=== PATIENT | female | born 1995 | race African-American/Black ===

== ENCOUNTER → 2025-02-02 | Emergency (ER) | payer OTHER ==
[~2025-02-02] VITALS: Ht 175.3 cm; Wt 77.1 kg
[~2025-02-02] MED LIST: ONDANSETRON HCL/PF 4 MG/2 ML VIAL ONE; PANTOPRAZOLE 40 MG VIAL ONE
[2025-02-02 23:47] LABS: BASOPHILS % (AUTO) 0.7 % (0.0-2.0); HEMATOCRIT 36 % (33-45); HEMOGLOBIN 12.1 g/dL (11.5-14.8); LYMPHOCYTES # (AUTO) 1.9 K/uL (0.8-4.8); MEAN CORPUSCULAR HEMOGLOBIN 32 PG (26.0-33.0); MEAN CORPUSCULAR HGB CONC 33 g/dl (31.0-36.0); MEAN CORPUSCULAR VOLUME 97 fL (82-100); MONOCYTES # (AUTO) 0.4 K/uL (0.1-1.30); MONOCYTES % (AUTO) 9.2 % (2.0-12.0); NEUTROPHILS % (AUTO) 46.1 % (43.0-81.0); PLATELET COUNT (AUTO) 233 K/uL (150-450); RED BLOOD CELL COUNT(AUTO) 3.77 MIL/uL (4.0-5.2); RED CELL DISTRIBUTION WIDTH 16.1 % (11.5-15.0); WHITE BLOOD COUNT (AUTO) 4.3 K/uL (4.3-11.0)
[2025-02-02] MEDS: IV NS 0.9% 1,000 ML BAG IV ONE (23:51)
[2025-02-02] MEDS: PANTOPRAZOLE 80 MG in IV NS 0.9% 100 ML IV ONE (23:53)
[2025-02-02] MEDS: ONDANSETRON HCL/PF 4 MG/2 ML VIAL IVP ONE (23:54)
[2025-02-03] LABS: CREATININE 0.8 mg/dL (0.6-1.3); POTASSIUM 3.6 mmol/L (3.5-5.1)
[2025-02-03 00:01] LABS: INR 1.06 (0.91-1.10); PARTIAL THROMBOPLASTIN TIME 27.3 SEC (24.3-34.3); PROTHROMBIN TIME 11.2 SECS (9.2-11.1)
[2025-02-03 00:06] LABS: ALBUMIN 3.8 g/dL (3.4-5.0); BILIRUBIN,DIRECT 0.3 mg/dL (0.0-0.2); BILIRUBIN,TOTAL 0.9 mg/dL (0.2-1.0); TOTAL PROTEIN, SERUM 7.7 g/dL (6.4-8.2)
[2025-02-03 01:17] VITALS: BP 102/69; TEMP 98.9; O2SAT 96
== END ==
LOC: ER 23:07
DX: F10.129 Alcohol abuse with intoxication, unspecified (principal); K92.0 Hematemesis; K76.0 Fatty (change of) liver, not elsewhere classified; Y90.8 Blood alcohol level of 240 mg/100 ml or more
CPT/HCPCS: 99285; 96374; 96361; 96375; 93005; 71045; 74176; 85025; 80048; 83690; 80076; 85730; 86850; 80320; J2405; J7030 ×3; J2470 ×2; A4223; 36415; G0480

== ENCOUNTER 2025-02-10 02:54 | Emergency (ER) | payer OTHER ==
[~2025-02-10] VITALS: Ht 177.8 cm; Wt 63.5 kg
[2025-02-10] MEDS ORDERED: FAMOTIDINE/PF INJ 20 MG/2 ML VIAL IV ONE ×2 (03:41→03:45)
[2025-02-10] MEDS ORDERED: PANTOPRAZOLE 40 MG VIAL ONE (03:45)
[2025-02-10] MEDS: FAMOTIDINE/PF INJ 40 MG in IV D5W 50 ML IV ONE (03:49)
[2025-02-10 03:50] LABS: BASOPHILS # (AUTO) 0.1 K/uL (0.0-0.2); BASOPHILS % (AUTO) 1.1 % (0.0-2.0); HEMATOCRIT 32 % (33-45); HEMOGLOBIN 10.4 g/dL (11.5-14.8); LYMPHOCYTES % (AUTO) 21.4 % (20.0-44.0); MEAN CORPUSCULAR HEMOGLOBIN 32 PG (26.0-33.0); MEAN CORPUSCULAR HGB CONC 33 g/dl (31.0-36.0); MEAN CORPUSCULAR VOLUME 97 fL (82-100); MONOCYTES # (AUTO) 0.5 K/uL (0.1-1.30); MONOCYTES % (AUTO) 10.1 % (2.0-12.0); NEUTROPHILS # (AUTO) 3.2 K/uL (1.8-8.9); NEUTROPHILS % (AUTO) 66.4 % (43.0-81.0); PLATELET COUNT (AUTO) 151 K/uL (150-450); RED BLOOD CELL COUNT(AUTO) 3.26 MIL/uL (4.0-5.2); RED CELL DISTRIBUTION WIDTH 16.2 % (11.5-15.0); WHITE BLOOD COUNT (AUTO) 4.8 K/uL (4.3-11.0)
[2025-02-10] MEDS: PANTOPRAZOLE 80 MG in IV NS 0.9% 100 ML IV ONE (03:57)
[2025-02-10] MEDS ORDERED: IOHEXOL-300 100 ML VIAL IV ONE (03:58)
[2025-02-10 04:03] LABS: INR 1.05 (0.91-1.10); PARTIAL THROMBOPLASTIN TIME 26.7 SEC (24.3-34.3); PROTHROMBIN TIME 11.1 SECS (9.2-11.1)
[2025-02-10 04:06] LABS: ALBUMIN 3.6 g/dL (3.4-5.0); BILIRUBIN,DIRECT 0.2 mg/dL (0.0-0.2); BILIRUBIN,TOTAL 0.7 mg/dL (0.2-1.0)
[2025-02-10 05:24] LABS: CALCIUM, SERUM 8.9 mg/dL (8.5-10.1); CREATININE 0.7 mg/dL (0.6-1.3); POTASSIUM 2.9 mmol/L (3.5-5.1)
[2025-02-10] MEDS ORDERED: POTASSIUM CHLORIDE 20 MEQ TAB.PRT.SR PO ONE (06:04)
[2025-02-10] MEDS: POTASSIUM CHLORIDE 20 MEQ TAB.PRT.SR PO ONE (06:05)
[2025-02-10] MEDS ORDERED: ONDANSETRON HCL/PF 4 MG/2 ML VIAL ONE (07:54)
[2025-02-10] MEDS ORDERED: LORAZEPAM INJ 2 MG/ML VIAL ONE (07:55)
[2025-02-10] MEDS: ONDANSETRON HCL/PF - ER 4 MG/2 ML VIAL IV ONE (08:00)
[2025-02-10] MEDS: LORAZEPAM INJ 2 MG/ML VIAL IV ONE (08:00)
[2025-02-10] MEDS ORDERED: CHLO25CA22 PO (10:45)
[2025-02-10] MEDS ORDERED: PANT40TA49 PO (10:45)
[2025-02-10 12:02] VITALS: BP 126/87; TEMP 98.7; O2SAT 100
== END 2025-02-10 12:03 | disposition home or self-care (01) ==
LOC: ER 02:56
DX: F10.129 Alcohol abuse with intoxication, unspecified (principal); R00.0 Tachycardia, unspecified; K92.0 Hematemesis; R10.2 Pelvic and perineal pain; Y90.9 Presence of alcohol in blood, level not specified
CPT/HCPCS: 99285; 96365; 96375; 74177; 85025; 80048; 80076; 36415; 85730; 86850; 84702; J2060; J1308 ×3; J2405 ×2; J7060 ×2; J7030 ×2; J2470 ×2; Q9967